=== PATIENT | female | born 1980 | race Caucasian/White ===

== ENCOUNTER 2021-08-02 03:55 | Emergency (ER) | payer MEDICAID ==
[~2021-08-02] VITALS: Ht 172.7 cm; Wt 62.6 kg
--- NOTE | 2021-08-02 04:05 | NUR ---
pt bibra c/o cp after aruging with her daugther. Pt aaox4 breathing evenly and unlabored. Pt attached to monitor and pox. MD at bedside for eval. pt given blanket and call light within reach.
--- NOTE | 2021-08-02 04:47 | NUR ---
Patient discharged to home in stable condition. Written and verbal after care instructions given. Patient verbalizes understanding of instruction. pt ambulatory with a steady gait
[2021-08-02 04:51] VITALS: BP 127/77
== END 2021-08-02 04:47 | disposition home or self-care (01) ==
LOC: ER 03:58
DX: F41.0 Panic disorder [episodic paroxysmal anxiety] (principal)